=== PATIENT | female | born 1985 | race Two or more races ===

== ENCOUNTER 2017-01-03 17:18 | Emergency (ER) | payer OTHER ==
--- NOTE | 2017-01-03 17:45 | PDOC ---
Rapid Medical Evaluation Time Seen by Provider: 01/03/17 17:43 Medical Evaluation: I have performed a brief in-person evaluation of this patient. The patient presents with a chief complaint of: L ankle/foot pain after a fall yesterday. LMP 1 mo ago. Pertinent physical exam findings: +Tenderness to L lateral malleolus and base of 5th metatarsal. I have ordered the following: UCG (for meds), XR The patient will proceed to the ED for further evaluation
[2017-01-03 17:58] VITALS: BP 127/68; PULSE 97; TEMP 97.3; BMI 24.9
[2017-01-03] MEDS ORDERED: OXYCODONE/APAP 5/325MG COMBO TABLET PO ONE (18:25)
--- NOTE | 2017-01-03 18:36 | PDOC ---
[id number] INJURY Time Seen by Provider: 01/03/17 17:43 History Source: Patient Exam Limitations: No Limitations - History of Present Illness Initial Comments: 01/03/17 18:31 31 yr female with c/o left foot/ankle injury last night in [employer]. Past History - Past Medical History Allergies/Adverse Reactions: Allergies Allergy/AdvReac Type Severity Reaction Status Date / Time No Known Allergies Allergy Verified 01/03/17 17:41 Home Medications: Ambulatory Orders Naproxen [Naprosyn -] 500 mg PO BID PRN #14 tablet 01/03/17 Asthma: No Cancer: No Cardiac Disorders: No Diabetes: No GI Disorders: Yes (GASTRITIS) HTN: No Suicide Attempt (Hx): No Seizures: No Thyroid Disease: No - Surgical History Abdominal Surgery: Yes Cholecystectomy: Yes (2008) - Reproductive History (#): 2 Para: 0 - Immunization History Immunization Up to Date: No - Psycho/Social/Smoking Cessation Hx Anxiety: No Suicidal Ideation: No Smoking Status: No Smoking History: Never smoked Have you smoked in the past 12 months: No Number of Cigarettes Smoked Daily: 0 Hx Alcohol Use: Yes (Occasional) Drug/Substance Use Hx: No Substance Use Type: Alcohol Hx Substance Use Treatment: No *Physical Exam - Vital Signs Last Vital Signs Temp Pulse Resp BP Pulse Ox 97.3 F L 97 H 16 127/68 100 01/03/17 17:43 01/03/17 17:43 01/03/17 17:43 01/03/17 17:43 01/03/17 17:43 - Physical Exam General Appearance: Yes: Nourished, Appropriately Dressed HEENT: positive: EOMI, AMELIA Respiratory/Chest: positive: Lungs Clear, Normal Breath Sounds Cardiovascular: positive: Regular Rhythm, Regular Rate Musculoskeletal: positive: Normal Inspection Extremity: positive: Normal Capillary Refill, Normal Inspection, Tender (left lateral maleolus ) Integumentary: positive: Normal Color, Dry, Warm Procedures - Splinting Pre-Made Type: aircast Medical Decision Making - Medical Decision Making 01/03/17 18:31 cc: left foot/ankle injury last night in [employer] class will xray to r/o fracture percocet for pain, pt states took ibuprofen with no relief. no deformity or swelling. 01/03/17 18:33 xray is negative air cast and crutches placed naprosyn for pain as directed dc inst reviewed with pt all questions asked and answered. 01/03/17 19:35 01/03/17 20:02 *DC/Admit/Observation/Transfer Diagnosis at time of Disposition: Injury of ankle Qualifiers: Encounter type: initial encounter Laterality: left Qualified Code(s): S99.912A - Unspecified injury of left ankle, initial encounter - Discharge Dispostion Disposition: HOME Condition at time of disposition: Good - Prescriptions Prescriptions: Naproxen [Naprosyn -] 500 mg PO BID PRN #14 tablet PRN Reason: Pain - Referrals Referrals: [facility] [Provider Group] Sathish Hurd MD [Staff Physician] - Teri Green MD [Primary Care Provider] - - Patient Instructions Additional Instructions: take naprosyn for pain as needed use the air cast splint while awake remove to sleep use crutches to ambulate follow with the orthopedist for follow up if pain persists or worsens - Post Discharge Activity Work/School Note: Back to Work
[2017-01-03] MEDS ORDERED: OXYCODONE/APAP 5/325MG COMBO TABLET ONE (18:39)
== END 2017-01-03 20:00 | disposition home or self-care (01) ==
LOC: JER 17:18
PROC: 2W3TX1Z Immobilization of Left Foot using Splint (ICD-10-PCS; principal; 2017-01-03)
DX: S99.912A Unspecified injury of left ankle, initial encounter (principal); X58.XXXA Exposure to other specified factors, initial encounter; Y93.A9 Activity, other involving cardiorespiratory exercise; Y92.9 Unspecified place or not applicable
CPT/HCPCS: 73610-TC-LT; 73630-TC-LT; 84703; 99281-25

== ENCOUNTER 2017-03-18 04:56 | Emergency (ER) | payer OTHER ==
[2017-03-18] MEDS ORDERED: OXYCODONE/APAP 5/325MG COMBO TABLET PO ONE (06:26)
[2017-03-18] MEDS ORDERED: IBUPROFEN 600 MG TABLET (FP) PO ONE ×2 (06:26→06:42)
--- NOTE | 2017-03-18 06:31 | PDOC ---
History of Present Illness - General Chief Complaint: Pain, Acute Stated Complaint: LEFT HAND PAIN Time Seen by Provider: 03/18/17 05:32 History Source: Patient Exam Limitations: No Limitations - History of Present Illness Initial Comments: 03/18/17 06:26 31yo Female patient w/ no significant past medical history presents to ED c/o left hand pain. Patient states symptoms began Sunday with tingling, that progressed to swelling throughout the week. Patient visited with her PCP and was prescribed muscle relaxer and physical therapy. She states taking both Motrin and muscle relaxer with no relief. Patient currently works as a nurses aide for elderly. She denies any other complaints at this time. PCP X-ray hand- Negative. PCP: Praveen Barrow Occurred: reports: other (Ongoing.) Severity: reports: moderate Upper Extremity Pain Location: left: hand Method of Injury: denies: unknown, assault, burn, direct blow, fell, incised, motor vehicle accident, sports injury, twisted, other Modifying Factors: improves with: pain medication Extremity Pain Location - Extremity Pain Location Extremity Pain Locations: left: hand Past History - Travel Traveled outside of the country in the last 30 days: No Close contact w/someone who was outside of country & ill: No - Past Medical History Allergies/Adverse Reactions: Allergies Allergy/AdvReac Type Severity Reaction Status Date / Time No Known Allergies Allergy Verified 03/18/17 05:16 Home Medications: Ambulatory Orders Naproxen [Naprosyn -] 500 mg PO BID PRN #14 tablet 01/03/17 Oxycodone HCl/Acetaminophen [Endocet 2.5-325 mg Tablet] 1 each PO Q6H PRN #12 tablet MDD 4 tabs 03/18/17 Oxycodone HCl/Acetaminophen [Oxycodone-Acetaminophen 5-325] 1 each PO Q6H PRN # 12 tablet MDD 4 TABS 03/18/17 Asthma: No Cancer: No Cardiac Disorders: No Diabetes: No GI Disorders: Yes (GASTRITIS) HTN: No Suicide Attempt (Hx): No Seizures: No Thyroid Disease: No - Surgical History Abdominal Surgery: Yes Cholecystectomy: Yes (2008) - Reproductive History (#): 2 Para: 0 - Immunization History Immunization Up to Date: No - Psycho/Social/Smoking Cessation Hx Anxiety: No Suicidal Ideation: No Smoking Status: No Smoking History: Never smoked Have you smoked in the past 12 months: No Number of Cigarettes Smoked Daily: 0 Information on smoking cessation initiated: No Hx Alcohol Use: No Drug/Substance Use Hx: No Substance Use Type: Alcohol Hx Substance Use Treatment: No Review of Systems - Review of Systems Able to Perform ROS?: Yes Is the patient limited Uzbek proficient: No Musculoskeletal: Yes: Muscle Pain, Other (Left Hand Pain and Swelling) All Other Systems: Reviewed and Negative *Physical Exam - Vital Signs Last Vital Signs Temp Pulse Resp BP Pulse Ox 97.6 F 76 20 123/85 98 03/18/17 05:10 03/18/17 05:10 03/18/17 05:10 03/18/17 05:10 03/18/17 05:10 - Physical Exam General Appearance: Yes: Nourished, Appropriately Dressed, Mild Distress. No: Apparent Distress, Moderate Distress, Severe Distress Neck: positive: Trachea midline, Supple. negative: Decreased range of motion, Stridor, Lymphadenopathy (R), Lymphadenopathy (L) Respiratory/Chest: positive: Chest Tender, Lungs Clear, Normal Breath Sounds. negative: Respiratory Distress, Accessory Muscle Use, Labored Respiration, Rapid RR Cardiovascular: positive: Regular Rhythm, Regular Rate Gastrointestinal/Abdominal: positive: Normal Bowel Sounds, Soft. negative: Distended, Guarding, Rebound, Tenderness Musculoskeletal: positive: Normal Inspection. negative: CVA Tenderness, Decreased Range of Motion, Muscle Spasm, Vertebral Tenderness Extremity: positive: Normal Capillary Refill (2+ Bounding pulses.), Normal Range of Motion, Swelling (Left Hand). negative: Pedal Edema, Calf Tenderness, Erythema, Inflammation Integumentary: positive: Normal Color, Dry, Warm. negative: Erythema, Petechiae , Swelling Neurologic: positive: well blower II-XII NML intact, Fully Oriented, Alert, Normal Mood/ Affect, Normal Response, Motor Strength 5/5 *DC/Admit/Observation/Transfer Diagnosis at time of Disposition: Hand pain, left - Discharge Dispostion Disposition: HOME Condition at time of disposition: Stable Admit: No - Prescriptions Prescriptions: Oxycodone HCl/Acetaminophen [Endocet 2.5-325 mg Tablet] 1 each PO Q6H PRN #12 tablet MDD 4 tabs PRN Reason: Severe Pain Oxycodone HCl/Acetaminophen [Oxycodone-Acetaminophen 5-325] 1 each PO Q6H PRN # 12 tablet MDD 4 TABS PRN Reason: Severe Pain - Referrals Referrals: Sathish Hurd MD [Staff Physician] - - Patient Instructions Printed Discharge Instructions: DI for Hand Pain Additional Instructions: FOLLOW UP WITH DR. HURD (ORTHOPEDIC). CALL TO SCHEDULE APPOINTMENT FOR FURTHER EVALUATION. TAKE MEDICATIONS PRESCRIBED. DO NOT DRIVE, DRINK ALCOHOL, OR OPERATE HEAVY MACHINERY WHILE TAKING OXYCODONE. Print Language: ALGERIAN
[2017-03-18] MEDS ORDERED: OXYCODONE/APAP 5/325MG COMBO TABLET ONE (06:41)
[2017-03-18 07:04] VITALS: BP 120/82; PULSE 65; TEMP 97.7; BMI 24.1
== END 2017-03-18 07:01 | disposition home or self-care (01) ==
LOC: JER 04:56
DX: M79.642 Pain in left hand (principal)
CPT/HCPCS: 99282-25

== ENCOUNTER 2018-10-21 14:22 | Emergency (ER) | payer OTHER ==
[2018-10-21 14:52] VITALS: BMI 23.6
--- NOTE | 2018-10-21 16:24 | PDOC ---
History of Present Illness - General Chief Complaint: Edema Stated Complaint: PAIN Time Seen by Provider: 10/21/18 15:19 History Source: Patient Exam Limitations: No Limitations - History of Present Illness Initial Comments: 10/21/18 16:18 Patient is a 33 year old female with a PMHx of Lupus (Diagnosed 08/2017) and gastritis who presented to the emergency department for worsening Lower and upper extremity swelling. Patient reports last week she stopped taking her DMARDs (She is unsure which one she is taking) after experiencing "cold-like" symptoms and diarrhea. Patient states since stopping her medications she's had progressive full body aches and swelling that started three days ago. This morning, she had difficulties ambulating and closing her hands, which prompted this hospital visit. Patient also reports one episode of a burning sensation in the midsternal area that lasted for a few minutes after taking 800mg of Ibuprofen. Patient otherwise denies any shortness of breath, shortness of breath, abdominal pain, constipation, acute vision changes, headaches, loss of consciousness, rash, pruritus, hemoptysis, melena, hematuria, hematochezia, hematemesis. Patient unsure of the name of her Dive Superintendent but is part of [facility]. However reports she is unable to get appointments if she does not book an appointment three months in advance. PMHx: Lupus Gastritis PSHx: Cholecystectomy Social Hx: Denies alcohol use Denies drug use Denies smoking Family Hx: Father- Denies Mother- "cancer between the breasts" Allergies: Codeine Past History - Past Medical History Allergies/Adverse Reactions: Allergies Allergy/AdvReac Type Severity Reaction Status Date / Time codeine Allergy Verified 10/21/18 14:52 Home Medications: Ambulatory Orders Naproxen 375 mg PO BID PRN #20 tablet 10/21/18 Asthma: No Cancer: No Cardiac Disorders: No COPD: No Diabetes: No GI Disorders: Yes (GASTRITIS) HTN: No Seizures: No Thyroid Disease: No - Surgical History Abdominal Surgery: Yes Cholecystectomy: Yes (2008) - Reproductive History (#): 2 Para: 0 - Immunization History Immunization Up to Date: No - Suicide/Smoking/Psychosocial Hx Smoking Status: No Smoking History: Never smoked Have you smoked in the past 12 months: No Number of Cigarettes Smoked Daily: 0 Information on smoking cessation initiated: No Hx Alcohol Use: No Drug/Substance Use Hx: No Substance Use Type: Alcohol Hx Substance Use Treatment: No Review of Systems - Review of Systems Constitutional: No: Chills, Diaphoresis, Fever HEENTM: Yes: Nose Congestion, Throat Swelling. No: Throat Pain Respiratory: Yes: Cough (dry). No: Shortness of Breath, SOB with Exertion, SOB at Rest, Stridor, Wheezing, Productive cough, Hemoptysis Cardiac (ROS): Yes: Palpitations. No: Chest Pain, Edema, Irregular Heart Rate, Lightheadedness, Syncope, Chest Tightness ABD/GI: Yes: Diarrhea, Indigestion. No: Abdominal Distended, Constipated, Difficulty Swallowing, Nausea, Rectal Bleeding, Vomiting, Abdominal cramping : No: Burning, Dysuria, Discharge, Frequency, Flank Pain, Hematuria, Pain Musculoskeletal: Yes: Back Pain, Joint Pain, Joint Swelling Integumentary: Yes: Other (Edema ). No: Bruising, Erythema, Flushing, Pruritus , Rash Neurological: No: Headache, Numbness, Paresthesia, Seizure, Tremors, Weakness Psychiatric: No: Anxiety, Depression *Physical Exam - Vital Signs Last Vital Signs Temp Pulse Resp BP Pulse Ox 98.4 F 99 H 16 129/84 100 10/21/18 14:49 10/21/18 14:49 10/21/18 14:49 10/21/18 14:49 10/21/18 14:49 - Physical Exam General Appearance: Yes: Other (Awake, Alert, oriented X3, in no acute distress ) HEENT: positive: EOMI, AMELIA, Normal ENT Inspection, Pharynx Normal. negative: Tonsillar Exudate, Tonsillar Erythema, Sinus Tenderness Neck: negative: Rigid, Decreased range of motion, Lymphadenopathy (R), Lymphadenopathy (L) Respiratory/Chest: positive: Lungs Clear, Normal Breath Sounds. negative: Decreased Breath Sounds, Crackles, Rales, Rhonchi, Stridor, Wheezing Cardiovascular: positive: Regular Rhythm, S1, S2, Tachycardia. negative: Edema , JVD, Murmur Vascular Pulses: Carotid (R): 2+, Carotid (L): 2+ Gastrointestinal/Abdominal: positive: Other (Soft, nontender, nondistended, normoactive bowel sounds, no rebound or guarding, no organomegaly ) Musculoskeletal: positive: Decreased Range of Motion, Other (multiple point tenderness throughout body ) Extremity: positive: Swelling (nonpitting edema throughout bilateral upper and lower extremities. predominately b/l hands and feet ). negative: Calf Tenderness Integumentary: positive: Normal Color, Dry, Warm, Swelling (throughout b/l LE and UE). negative: Erythema Neurologic: positive: pizza delivery II-XII NML intact, Fully Oriented, Alert, Normal Mood/ Affect, Normal Response, Motor Strength 5/5 Moderate Sedation - Procedure Monitoring Vital Signs: Procedure Monitoring Vital Signs Temperature 98.4 F 10/21/18 14:49 Pulse Rate 99 H 10/21/18 14:49 Respiratory Rate 16 10/21/18 14:49 Blood Pressure 129/84 10/21/18 14:49 O2 Sat by Pulse Oximetry (%) 100 10/21/18 14:49 ED Treatment Course - LABORATORY CBC & Chemistry Diagram: 10/21/18 16:30 10/21/18 16:30 Medical Decision Making - Medical Decision Making 10/21/18 16:40 Patient is a 33 year old female with a PMHx of Lupus diagnosed 08/2017 who presents for B/L lower and upper extremity edema and swelling. Patient reports stopping her DMARD's one week ago due to "cold-like" symptoms and subsequently had worsening edema. Patient likely has Lupus flare up due to medication noncompliance. -Basic work up with CBC and CMP orderd -ESR and CRP ordered -EKG and cardiac profile ordered -Will call pharmacy to get name of medication and name of concrete mixing truck driver -Influenza swab ordered 10/21/18 18:33 -Spoke to her concrete mixing truck driver, Dr. Celsa Jackson, who reported that patient has not followed up at her office since July 2017 and was only give a prescription for Plaquinil with one refill. Upon further questioning the patient, she reports being noncompliant with medications and has not followed up with a PCP or Dive Superintendent since 2017. -Will call our concrete mixing truck driver control and recovery special tactics. -Labs revealed elevated CRP and ESR of 90. -Influenza swab pending 10/21/18 18:46 -Flu swab negative -Awaiting call back from Rheumatology -U/A revealed 2+ proteins and 1+ LE with WBC's 10/21/18 19:14 -Spoke to Dive Superintendent, Dr. Abraham, and states that Plaquinil and Lupus flare up would not cause swelling of b/l feet and arm. No need for steroids at this time but will need to follow up with him this week. Recommended Naproxen and Tylenol. -Will discharge patient home with information to [facility] clinic and Dr. Abraham *DC/Admit/Observation/Transfer Diagnosis at time of Disposition: Fluid collection (edema) in the arms, legs, hands and feet - Discharge Dispostion Disposition: HOME Condition at time of disposition: Stable Decision to Admit order: No - Prescriptions Prescriptions: Naproxen 375 mg PO BID PRN #20 tablet PRN Reason: Pain - Referrals Referrals: Davide Bacon MD [Staff Physician] - [facility] [address] [Provider Group] - Patient Instructions Additional Instructions: -You were seen here for swelling of the arms and full body aches with possible Lupus flare up. You will need to follow up with a concrete mixing truck driver and you will have contact information for Dr. Abraham. Please call his office on Sunday ( 10/23/18) and make an appointment. -You were also scheduled for an appointment with Dr. Mercy Velázquez at [facility] clinic at [address] [place] [address] on November 05Sunday at 11:00 am -We recommend you take Naproxen 375mg twice a day and Tylenol as needed. -If you experience any symptoms such as shortness of breath, severe chest pain, or worsening swelling, return to the emergency department immediately. - Post Discharge Activity
--- NOTE | 2018-10-21 16:31 | PDOC ---
Attending Attestation - Resident Resident Name: Mercy Velázquez - ED Attending Attestation I have performed the following: I have examined & evaluated the patient, The case was reviewed & discussed with the resident, I agree w/resident's findings & plan, Exceptions are as noted - HPI HPI: 10/21/18 18:00 33-year-old female patient with past medical history Lupus, unsure which she takes daily (possibly plaquenil according to her old pharmacy), gastritis presents with upper and lower extremities swelling. The patient reports approximately 1 week ago that she stopped taking her medication for lupus and she was started develop URI-like symptoms. Since then, the patient had stopped taking her medications. She has started developing some general body aches, joint aches as well as peripheral edema. She reported that the symptoms were similar to the prior time when she was initially diagnosed with lupus. She denies chest pain or shortness of breath. Denies fevers or chills. Patient was noted to have this edema so came to the ER for further evaluation. - Physicial Exam PE: 10/21/18 18:05 GENERAL: Awake, alert, and fully oriented, in no acute distress HEAD: No signs of trauma EYES: PERRLA, EOMI, sclera anicteric, conjunctiva clear ENT: Auricles normal inspection, hearing grossly normal, nares patent, Moist mucosa NECK: Normal ROM, supple LUNGS: Breath sounds equal, clear to auscultation bilaterally. No wheezes, and no crackles HEART: Regular rate and rhythm, normal S1 and S2, no murmurs, rubs or gallops ABDOMEN: Soft, nontender, No guarding, no rebound. No masses EXTREMITIES: Normal range of motion, mild nonpitting edema upper and lower extremities. No clubbing or cyanosis. No cords, erythema, or tenderness NEUROLOGICAL: Cranial nerves II through XII grossly intact. Normal speech, normal gait SKIN: Warm, Dry, normal turgor, no rashes or lesions noted. - Medical Decision Making 10/21/18 18:05 Vital Signs Temp Pulse Resp BP Pulse Ox 98.4 F 99 H 16 129/84 100 10/21/18 14:49 10/21/18 14:49 10/21/18 14:49 10/21/18 14:49 10/21/18 14:49 I suspect the patient is likely having lupus flareup secondary to stopping her medications. At this time, laboratories reviewed demonstrates no acute findings such as acute renal failure or hyperlipidemia. We encouraged patient to follow up with her receiver/laborer and to resume her lupus medications. My resident we' ll check in the pharmacy to identify which medications she truly takes. We'll attempt to reach out to her receiver/laborer in regards to disposition. I suspect that the patient also has a viral URI. 10/21/18 18:11 CBC, BMP 10/21/18 16:30 10/21/18 16:30 CMP Sodium 136 mmol/L (136-145) 10/21/18 16:30 Potassium 4.4 mmol/L (3.5-5.1) 10/21/18 16:30 Chloride 108 mmol/L (98-107) H 10/21/18 16:30 Carbon Dioxide 20 mmol/L (21-32) L 10/21/18 16:30 Anion Gap 7 MMOL/L (8-16) L 10/21/18 16:30 BUN 25 mg/dL (7-18) H 10/21/18 16:30 Creatinine 1.0 mg/dL (0.55-1.3) 10/21/18 16:30 Creat Clearance w eGFR > 60 (>60) 10/21/18 16:30 Random Glucose 96 mg/dL (74-106) 10/21/18 16:30 Calcium 8.5 mg/dL (8.5-10.1) 10/21/18 16:30 Total Bilirubin 0.2 mg/dL (0.2-1) 10/21/18 16:30 AST 61 U/L (15-37) H 10/21/18 16:30 ALT 70 U/L (13-61) H 10/21/18 16:30 Alkaline Phosphatase 49 U/L (45-117) 10/21/18 16:30 Creatine Kinase 56 IU/L (26-192) 10/21/18 16:14 Troponin I < 0.02 ng/ml (0.00-0.05) 10/21/18 16:14 C-Reactive Protein 1.7 MG/DL (0.00-0.3) H 10/21/18 16:30 Total Protein 8.0 g/dl (6.4-8.2) 10/21/18 16:30 Albumin 2.9 g/dl (3.4-5.0) L 10/21/18 16:30 ESR elevated to 90. Dr. Velázquez had spoken to pt's receiver/laborer. Pt has not had followed up with them in over 1 year. Pt finally admits that she doesn't go to doctors or take her medications. Dr. Velázquez had paged Dr. Abraham now for further disposition. 10/21/18 19:02 Dr. Velázquez now speaking on phone with Dr. Abraham. 10/21/18 19:14 Dr. Abraham states patient can be followed up as an outpatient with his this Sunday. No steroids or drugs at this time. Heart Score/ECG Review #1 ECG reviewed & interpreted by me at: 17:35 10/21/18 17:51 NSR 101, no domo/std, normal axis, normal intervals, QTC 391 msec
[2018-10-21 16:48] LABS: BASO % 0.9 % (0-2.0); EOS % 2.5 % (0-4.5); HEMATOCRIT 30.2 % (32.4-45.2); HEMOGLOBIN 10.5 GM/dL (10.7-15.3); LYMPH % 23.8 % (8-40); MCH 28.6 pg (25.7-33.7); MEAN CELL VOLUME 81.7 fl (80-96); MEAN PLT VOLUME 8.2 fl (7.5-11.1); MONO % 4.2 % (3.8-10.2); NEUT % 68.6 % (42.8-82.8); PLATELET COUNT 243 K/MM3 (134-434); RBC 3.69 M/mm3 (3.60-5.2); RDW 14.4 % (11.6-15.6); WHITE BLOOD COUNT 3.7 K/mm3 (4.0-10.0)
[2018-10-21] MEDS ORDERED: ACETAMINOPHEN 1000 MG/100 ML VIAL (NON FORMULARY) IVPB ONE (17:18)
[2018-10-21] MEDS ORDERED: ACETAMINOPHEN INJECTION 100 ML IVPB ONE (17:26)
[2018-10-21 17:35] LABS: ALBUMIN 2.9 g/dl (3.4-5.0); ALK PHOS 49 U/L (45-117); ANION GAP 7 MMOL/L (8-16); BILIRUBIN,TOTAL 0.2 mg/dL (0.2-1); BLOOD UREA NITROGEN 25 mg/dL (7-18); CALCIUM 8.5 mg/dL (8.5-10.1); CHLORIDE 108 mmol/L (98-107); CO2 20 mmol/L (21-32); GLUCOSE,RANDOM 96 mg/dL (74-106); POTASSIUM 4.4 mmol/L (3.5-5.1); SGOT/AST 61 U/L (15-37); SGPT/ALT 70 U/L (13-61); SODIUM 136 mmol/L (136-145)
[2018-10-21 18:31] LABS: URINE APPEARANCE CLEAR; URINE BILIRUBIN NEGATIVE (<2.0 mg/dL); URINE COLOR LTYELLOW; URINE GLUCOSE (UA) NEGATIVE (NEGATIVE); URINE KETONE NEGATIVE (NEGATIVE); URINE LEUK ESTERASE 1+ (NEGATIVE); URINE NITRITE NEGATIVE (NEGATIVE); URINE PROTEIN 2+ (NEGATIVE); URINE UROBILINOGEN NEGATIVE mg/dL (0.2-1.0)
[2018-10-21 18:32] LABS: EPI CELLS RARE /HPF (FEW); GRANULAR CASTS 15 /lpf; URINE MUCUS RARE
[2018-10-21 20:21] VITALS: BP 110/67; PULSE 75; TEMP 98
--- NOTE | 2018-10-22 16:57 | EKG ---
Test Reason : Blood Pressure : / mmHG Vent. Rate : 101 BPM Atrial Rate : 101 BPM P-R Int : 096 ms QRS Dur : 084 ms QT Int : 302 ms P-R-T Axes : 023 070 026 degrees QTc Int : 391 ms SINUS TACHYCARDIA WITH SHORT LA OTHERWISE NORMAL ECG WHEN COMPARED WITH ECG OF 17-MAY-2014 20:48, NO SIGNIFICANT CHANGE WAS FOUND Confirmed by MD Perry Daniel ([id number]) on 10/22/2018 4:56:33 PM Referred By: Confirmed By:Deandre Perry MD
== END 2018-10-21 20:21 | disposition home or self-care (01) ==
LOC: JER 14:22
PROC: 3E033NZ Introduction of Analgesics, Hypnotics, Sedatives into Peripheral Vein, Percutaneous Approach (ICD-10-PCS; principal; 2018-10-21)
DX: R60.0 Localized edema (principal); Z87.39 Personal history of other diseases of the musculoskeletal system and connective tissue; Z91.14 Patient's other noncompliance with medication regimen
CPT/HCPCS: 36415; 80053; 81003; 81015; 82550; 84484; 84703; 85025; 85651; 86140; 87086; 87186; 87804; 93005; 93010; 99284-25; J0131

== ENCOUNTER 2021-02-12 19:29 | Emergency (ER) | payer OTHER ==
[2021-02-12 19:40] VITALS: BP 113/76; PULSE 76; TEMP 97.5; BMI 25.4
[2021-02-12] MEDS ORDERED: ACETAMINOPHEN/CAFFEINE/BUTALBITAL 1 TAB PO ONE (20:31)
[2021-02-12] MEDS ORDERED: ACETAMINOPHEN/CAFFEINE/BUTALBITAL 1 TAB ONE (20:43)
== END 2021-02-12 22:36 | disposition left against medical advice (07) ==
LOC: JER 19:29
DX: G44.209 Tension-type headache, unspecified, not intractable (principal)
CPT/HCPCS: 99284-25

== ENCOUNTER 2022-09-07 07:50 | Day surgery (SDC) | payer OTHER ==
[2022-09-06 15:53] VITALS: BMI 25.7
[2022-09-07] MEDS ORDERED: PROPOFOL 100 ML ONE (08:08)
[2022-09-07] MEDS ORDERED: LIDOCAINE HCL/PF 2% SDV 5ML VIAL ONE (08:08)
[2022-09-07 08:56] VITALS: RESP 18; TEMP 98
[2022-09-07 09:23] VITALS: BP 119/79; PULSE 85
== END 2022-09-07 09:36 | disposition home or self-care (01) ==
LOC: FASU-ENDO 07:50
PROVIDERS: ATTEND Internal Medicine Gastroenterology
PROC: 0DB68ZX Excision of Stomach, Via Natural or Artificial Opening Endoscopic, Diagnostic (ICD-10-PCS; 2022-09-07)
PROC: 0DB98ZX Excision of Duodenum, Via Natural or Artificial Opening Endoscopic, Diagnostic (ICD-10-PCS; principal; 2022-09-07 08:30)
DX: K29.50 Unspecified chronic gastritis without bleeding (principal); R10.13 Epigastric pain
CPT/HCPCS: 81025; 88305-TC; 88342-TC